=== PATIENT | male | born 1980 | race African-American/Black ===

== ENCOUNTER 2025-08-16 15:50 | Emergency (ER) | payer OTHER ==
[~2025-08-16] VITALS: Ht 193 cm; Wt 115.0 kg
[2025-08-16 16:11] VITALS: TEMP 36.7; O2SAT 99
[2025-08-16] MEDS ORDERED: IBUP-2028 MT (17:12)
[2025-08-16] MEDS ORDERED: LIDO-53 TP (17:12)
[2025-08-16] MEDS ORDERED: GABA-529 MT (17:12)
[2025-08-16] MEDS: KETOROLAC 30MG/ML VIAL IM ONE (17:38)
[2025-08-16] MEDS: LIDOCAINE 5% PATCH TOP SCH (17:38)
[2025-08-16 17:49] VITALS: BP 138/90; PULSE 69; RESP 16; O2SAT 98
== END 2025-08-16 17:50 | disposition home or self-care (01) ==
LOC: ER 15:50
DX: S16.1XXA Strain of muscle, fascia and tendon at neck level, initial encounter (principal); I10 Essential (primary) hypertension; X58.XXXA Exposure to other specified factors, initial encounter; Y93.89 Activity, other specified; Y92.89 Other specified places as the place of occurrence of the external cause; Y99.8 Other external cause status
CPT/HCPCS: 99283